=== PATIENT | female | born 1950 | race Caucasian/White ===

== ENCOUNTER 2017-09-26 14:12 | Emergency (ER) | payer OTHER ==
[2017-09-26] MEDS: TETRACAINE 0.5% OPHTH SOLUTION 4ML BOTTLE. OD (15:15)
[2017-09-26] MEDS: FLUORESCEIN OPHTH TEST STRIP. OD (15:15)
[2017-09-26] MEDS ORDERED: NEO/POLYMYX/DEXAMETH OPHTH SUSPENSION 5ML BOTTLE. OD (16:15)
== END 2017-09-26 16:49 | disposition home or self-care (01) ==
LOC: ER 14:12
DX: H20.9 Unspecified iridocyclitis (principal); H10.9 Unspecified conjunctivitis; H57.11 Ocular pain, right eye; J45.909 Unspecified asthma, uncomplicated
CPT/HCPCS: 99283